=== PATIENT | female | born 1995 | race Hispanic/Latino ===

== ENCOUNTER 2018-04-13 19:46 | Emergency (ER) | payer SELFPAY ==
[2018-04-13 19:47] VITALS: BP 146/84; PULSE 97; RESP 18; TEMP 36.4; O2SAT 100; BMI 39.7
[2018-04-13 20:06] VITALS: PULSE 97; RESP 18; TEMP 36.4; O2SAT 100
--- NOTE | 2018-04-13 20:11 | CT_ITS ---
STUDY: CT SOFT TISSUE NECK WITH CONTRAST REASON FOR EXAM: Female, 22 years old. Sore throat. Lump anteriorly in the mid neck. Elevated hypertension. RADIATION DOSAGE (If Supplied By Facility): CTDIvol = ( 22.69 ) mGy, DLP = ( 662.80 ) mGycm TECHNIQUE: The patient was scanned in a multi-detector CT scanner. High resolution transaxial imaging was performed following intravenous administration of 75ML ml of Isovue 300 contrast material. Sagittal and coronal images were reconstructed. Individualized dose optimization techniques were used for this CT. COMPARISON: None. FINDINGS: Normal bilateral parotid glands. Normal bilateral relations mgr spaces. Normal bilateral parapharyngeal spaces. Normal bilateral carotid spaces. Normal bilateral sublingual and submandibular glands. There is a 1.1 x 0.6 x 0.4 cm left submandibular lymph node. There is mild adenoidal hyperplasia. Normal retropharyngeal space. Normal perivertebral space. Normal visualized bilateral faucial tonsils. The visualized tongue, tongue base and oropharynx are normal. The visualized cervical lymph nodes (levels I-) are within normal size limits, and maintain normal morphology. There is no demonstrated solid or cystic mass lesion. There is no abnormal contrast enhancement. Normal epiglottis, bilateral vallecula and hypopharynx. The pre-epiglottic and paraglottic adipose spaces are normal. Normal visualized bilateral piriform sinuses, aryepiglottic folds, vocal cords, and arytenoid-cricoid articulations. Normal subglottic trachea. Normal bilateral lobes of the thyroid gland. Normal visualized pulmonary apices. Normal visualized paranasal sinuses. Normal visualized cervical spine. CT/Soft Tissue Neck WITH Contrast IMPRESSION: Essentially normal enhanced CT examination of the soft tissues of the neck. Electronically Signed: Bhavesh Pitts DO at 22:21 EST Tel [phone], Service support ,
[2018-04-13] MEDS: 0.9% Normal Saline 1,000 ML 150 ML IV (20:34)
[2018-04-13 20:57] LABS: Absolute Lymphocyte Count 4.91 X10^3/ul (0.83-4.51); Absolute Neutrophil Count 8.1 X10^3/uL (2.0-7.7); Basophil# 0.04 X10^3/uL; Basophil% 0.3 % (0-1); Eosinophil# 0.16 X10^3/uL; Eosinophils% 1.1 % (0-5); Hematocrit 42.9 % (37-47); Hemoglobin 14.2 g/dl (12.0-15.0); Lymphocyte # 4.91 X10^3/ul (4.0); Mean Corp Hgb Conc 33.1 g/gl (32-36); Mean Corpuscular Hgb 27.6 pg (27.0-32.0); Mean Corpuscular Volume 83.3 fL (81-99); Monocyte# 0.79 X10^3/uL; Monocyte% 5.6 % (0-10); Neutrophil # 8.11 X10^3/uL (2.7-7.7); Neutrophil % 57.8 % (47-70); Platelet Count 372 K/mm3 (150-450); RBC Distribution Width CV 14.8 % (11.6-14.6); RBC Distribution Width SD 44.3 fl (35.1-43.9); Red Blood Count 5.15 M/mm3 (4.2-5.4)
[2018-04-13 21:00] LABS: Anion Gap 9 (5-15); BUN 10 mg/dL (7-18); BUN/Creat Ratio 12.6 RATIO (10-20); Calcium,Total 8.8 mg/dL (8.5-10.1); Chloride 104 mmol/L (98-107); EST Glomerular Filtration Rate 97 mL/min (>60); Est Glom Filt Rate - Afr Amer 117 mL/min (>60); Glucose 103 mg/dL (74-106); Potassium 3.6 mmol/L (3.5-5.1); Sodium Level 138 mmol/L (136-145)
[2018-04-13 21:02] LABS: POSITIVE COUNT NO; POSITIVE DIFFERENTIAL NO; POSITIVE MORPHOLOGY NO
[2018-04-13 21:06] LABS: Internal QC Validated? YES +Cl - CLEAR BKGD; Pregnancy, Urine Negative Negative
--- NOTE | 2018-04-13 22:25 | ED.VISSUMM ---
- ER Visit Summary Date of Service: 04/13/18 Chief Complaint: Sore throat, jaw swelling History of Present Illness: The patient is a 22 F woke yesterday morning with some jaw pain. She states the muscles hurt to open her mouth. This morning she woke up with swollen area under her chin and a palpable mass. She feels that the area of under her tongue was swollen this morning but that is now improved. She denies any dental pain. Physical Examination: Vital signs are unremarkable. Patient sitting upright in bed no acute distress. Head neck examination reveals TMs to be clear bilaterally. Intraoral examination reveals no focal dental tenderness. There is no gum edema. There is no fullness under the tongue at this time. She does have a palpable nodule noted just on the undersurface of her chin. There is no overlying skin changes. Heart is regular rate and rhythm. Lung sounds clear. Abdomen is soft nontender. Test Results: CBC was a white count of 14.0 but normal differential noted. Chemistry studies normal. test negative. CT neck with IV contrast is essentially unremarkable. There is a left submandibular lymph node noted in the area of interest. Emergency Department Course and Treatment: Test results were discussed with the patient. Because of the location of this lymph node and the fact that it was larger earlier pressing on the undersurface of her tongue, I will cover her with antibiotics. She will be given initial dose of Augmentin here and a prescription. Treatment Plan: [] Disposition: Discharge Impression: Lymphadenitis This note was generated with [employer] dictation software. It may contain incorrect words, spelling, and punctuation that were not noted in review of the chart prior to signing ED Disposition - Plan for ED Patient: Disposition: Home or Assisted Living Chief Complaint: Sore Throat Instructions: ED Cervical Adenitis Abx Tx Prescriptions: Amox/Clavulanate Tablet [Augmentin Tablet] 875 mg PO Q12H #20 tablet Referrals: Krystle Caraballo MD [STAFF PHYSICIAN] - As Needed
[2018-04-13 22:35] VITALS: BP 127/79; PULSE 83; RESP 14; O2SAT 99
[2018-04-13] MEDS: Amox/Clavulanate 875 MG Tablet PO (22:35)
== END 2018-04-13 22:36 | disposition home or self-care (01) ==
PROVIDERS: Emergency Provider Emergency Medicine
DX: I88.9 Nonspecific lymphadenitis, unspecified (principal); Z87.442 Personal history of urinary calculi; Z72.0 Tobacco use
CPT/HCPCS: 70491; 80048; 81025; 85025; 96360; 96361; 99285; J7030; Q9967; A4216

== ENCOUNTER 2018-08-12 11:17 | Emergency (ER) | payer BC, SELFPAY ==
[2018-08-12 11:18] VITALS: BP 144/66; PULSE 92; RESP 18; TEMP 36.8; O2SAT 100; BMI 34.8
--- NOTE | 2018-08-12 11:32 | ED.DCSUM_ITS ---
History of Present Illness Chief Complaint: Back Informant: Patient Onset: Days - Onset of waxing waning central low back pain 2 days ago that is not positional and unable to find position of comfort Context: Sudden Onset Timing: Continuous, Waxes and wanes Quality: Pain Location: central low back Current Severity: Severe Maximum Severity: Severe Worsened by: Nothing Relieved by: Nothing Associated Symptoms: Nausea Narrative: Who presents with sudden onset of central low back pain that is waxing and waning in intensity for the past 2 days. She completed a course of antibiotics 3 days ago for UTI. She has history of ureteral/renal lithiasis. She denies fever, chills night sweats. She does report intermittent nausea without vomiting or diarrhea. She denies dysuria, frequency or hematuria. She denies history of endometriosis, ovarian cysts or ectopic . She denies trauma and has not noted a rash. She has taken multiple [id number] medicines with no improvement. Prior similar symptoms: No Recent Illness/Hospitalization: Yes - UTI - Past Medical History (1) Renal and ureteric calculus Status: Chronic Past Medical History - Allergies and Home Meds Allergies/Adverse Reactions: Allergies latex Allergy (Verified 04/13/18 19:47) Itching Primary Care Physician: Care Physician,No Primary [Primary Care Provider] - Prior records reviewed: Yes Surgical History: no surgical history Lives: Alone Smoking Status: Current every day smoker Alcohol: Rare Drugs: None Review of Systems General: Denies: Chills, Fever, Malaise, Subjective, Sweats ENT: Reports: Bilateral ear pain, Rhinorrhea, Sore throat Cardiovascular: Denies: Chest pain, Palpitations Respiratory: Denies: Dyspnea, Cough, Dyspnea on exertion Gastrointestinal: Reports: Nausea. Denies: Abdominal pain, Vomiting, Diarrhea, Constipation, Melena, Hematochezia, -, - Genitourinary: Denies: Dysuria, Hematuria, Frequency Musculoskeletal: Reports: Back pain. Denies: Myalgias, Arthralgias, Neck pain, Swelling, Extremity Pain, -, - Skin: Denies: Rash, Wounds Neurological: Denies: Headache, Weakness Allergy: Denies: Uticaria, Swelling of the mouth Physical Exam Vital Signs/Narrative: Vital Signs Temp Pulse Resp BP Pulse Ox 08/12/18 11:18 98.3 F 92 18 144/66 H 100 Inital Vital Signs reviewed: Yes General: Well nourished, Well developed, No Acute Distress Head: Normocephalic, Atraumatic Eyes: Perrl, EOMI ENT: Moist mucous membranes, No rhinorrhea Neck: Supple, Nontender Cardiovascular: Regular rate, Regular rhythm, No murmurs Respiratory: No distress, CTA bilaterally, Chest nontender Abdomen: Soft, Nontender, Nondistended, Normal bowel sounds, No masses. Negative for: Hepatomegaly, Splenomegaly, Mass, Pulsatile mass Back: Nontender, Normal Inspection. Negative for: CVA tenderness, Spinal tenderness Extremities: Nontender, No edema Skin: Normal color, No rash. Negative for: Cyanosis, Jaundice Neurological: Alert, Oriented x3, Cranial nerves II-XII grossly intact, Normal Strength, Normal Sensation, Normal Gait Psychological: Normal affect, Normal Mood Diagnostic/Tx/Re-eval Impressions Abdomen/Pelvis CT 08/12/18 12:09 IMPRESSION: No evidence of hydronephrosis. No evidence of renal ureteral bladder calculi. Two Benign-appearing right renal cysts. Consider follow-up ultrasound for further clarification. Electronically Signed: Leticia Ugalde MD at 12:59 EDT Tel , Service support , 08/12/18 12:09 Abdomen/Pelvis WITH Contrast [CT] Stat Laboratory Results 08/12/18 08/12/18 08/12/18 11:34 11:34 11:45 WBC 11.5 H RBC 5.05 Hgb 14.2 Hct 43.0 MCV 85.1 MCH 28.1 MCHC 33.0 RDW 13.5 RDW Differential 41.9 Plt Count 346 MPV 9.5 Immature Gran % (Auto) 0.200 Neut % (Auto) 67.3 Lymph % (Auto) 26.4 [place] % (Auto) 4.5 Eos % (Auto) 1.4 Baso % (Auto) 0.2 Absolute Neuts (auto) 7.7 Absolute Lymphs (auto) 3.02 Total Counted Not Reportable Serum , Qual NEGATIVE Urine Color Yellow Urine Clarity Clear Urine pH 7.0 Ur Specific [place] 1.010 Urine Protein Negative Urine Glucose (UA) Normal Urine Ketones Negative Urine Occult Blood Negative Urine Nitrite Negative Urine Bilirubin Negative Urine Urobilinogen Normal Ur Leukocyte Esterase 100 H Urine RBC 0 SEEN Urine WBC 5-10 SEEN Ur Squamous Epith Cells 0-5 SEEN Urine Bacteria 0 SEEN Urine Mucus 0 SEEN - Medical Decision Making With abrupt onset of waxing waning continuous pain need to evaluate for ureterolithiasis, ovarian cyst, ectopic . Patient was medicated with Zofran and IV Toradol. CBC and UA were obtained as well as serum test. CT flank was ordered. CT held until results of test are known. If test positive ultrasound may be a better study to evaluate her discomfort and will require pelvic exam. Patient was reassessed at 1 2: 05. She is smiling. Pain is essentially resolved. He was informed that a CT of the abdomen pelvis was ordered to evaluate for ureterolithiasis. Even though CT is negative for obstructing stone or ureterolithiasis history is suspicious. Will treat with anti-inflammatory and have patient follow-up with primary care physician. ED Disposition - Plan for ED Patient: Disposition: Home or Assisted Living Diagnosis: Acute midline back pain Instructions: ED Neck Back Pain General Prescriptions: Naproxen [Naprosyn] 500 mg PO BID #14 tab Referrals: Care Physician,No Primary [Primary Care Provider] - Edwige Keane MD [STAFF PHYSICIAN] - As Needed
[2018-08-12 11:42] LABS: Absolute Lymphocyte Count 3.02 X10^3/ul (0.83-4.51); Absolute Neutrophil Count 7.7 X10^3/uL (2.0-7.7); Basophil# 0.02 X10^3/uL; Basophil% 0.2 % (0-1); Eosinophil# 0.16 X10^3/uL; Eosinophils% 1.4 % (0-5); Hemoglobin 14.2 g/dl (12.0-15.0); Lymphocyte # 3.02 X10^3/ul (4.0); Lymphocyte % 26.4 % (19-41); Mean Corpuscular Hgb 28.1 pg (27.0-32.0); Mean Corpuscular Volume 85.1 fL (81-99); Mean Platelet Vol. 9.5 fl (6.2-12.0); Monocyte# 0.51 X10^3/uL; Monocyte% 4.5 % (0-10); Neutrophil # 7.73 X10^3/uL (2.7-7.7); Neutrophil % 67.3 % (47-70); Platelet Count 346 K/mm3 (150-450); RBC Distribution Width CV 13.5 % (11.6-14.6); RBC Distribution Width SD 41.9 fl (35.1-43.9); Red Blood Count 5.05 M/mm3 (4.2-5.4); White Blood Count 11.5 K/mm3 (4.4-11.0)
[2018-08-12 11:43] VITALS: TEMP 36.8
[2018-08-12 11:44] LABS: POSITIVE COUNT NO; POSITIVE DIFFERENTIAL NO; POSITIVE MORPHOLOGY NO
[2018-08-12] MEDS: Ondansetron 4 MG/2 ML Vial IV (11:46)
[2018-08-12] MEDS: 0.9% Normal Saline 1,000 ML 250 ML IV (11:46)
[2018-08-12] MEDS: Ketorolac 30 MG/ML Syringe 15 MG IV (11:46)
[2018-08-12 11:53] LABS: Bacteria 0 SEEN /hpf (None Seen); Mucous, Urine 0 SEEN /hpf (<or=2+); Red Blood Cells-Urine 0 SEEN /hpf (0-5)
[2018-08-12 11:55] LABS: Internal QC Validated? YES +Cl - CLEAR BKGD; Pregnancy, Serum, hCG Quali. NEGATIVE Negative
[2018-08-12 12:03] LABS: Color, Urine Yellow (Yellow); Glucose, Dipstick Normal (Normal); Ketone-Dipstick Negative (Negative); Leukocyte Esterase-Dipstick 100 /ul (Negative); Nitrite-Dipstick Negative (Negative); Occult Blood-Urine Negative /ul (Negative); Protein-Dipstick Negative (Negative); Urine Bilirubin Dipstick Negative (Negative); Urine Clarity Clear (Clear); Urine Urobilinogen Normal (Normal)
--- NOTE | 2018-08-12 12:09 | CT_ITS ---
STUDY: CT ABDOMEN AND PELVIS WITH CONTRAST REASON FOR EXAM: Female, 23 years old. Recent UTI flank pain RADIATION DOSAGE (If Supplied By Facility): CTDIvol = ( 19.31 ) mGy, DLP = ( 2407.44 ) mGycm TECHNIQUE: Transaxial images were obtained from the dome of the diaphragm to the symphysis pubis without oral contrast. 100 IV Isovue 300 was administered. Sagittal and coronal images were reconstructed. Individualized dose optimization techniques were used for this CT. COMPARISON: None. FINDINGS: The visualized lung bases are unremarkable. The visualized portions of the heart are within normal limits. Normal liver. The gallbladder is contracted. Normal spleen. Normal pancreas. Normal bilateral adrenal glands. There is a 1 cm posterior right right renal cyst. There is a 7 mm right renal cyst. There is no evidence of striations in the kidneys. Normal left kidney. Normal visualized stomach. Normal small intestine. There is moderate stool in the colon. The appendix is visualized and appears normal. Normal abdominal aorta. Normal inferior vena cava. Normal retroperitoneum. Normal urinary bladder. Normal visualized uterus. Normal abdominal wall. Normal osseous structures. CT/Abdomen/Pelvis WITH Contrast IMPRESSION: No evidence of hydronephrosis. No evidence of renal ureteral bladder calculi. Two Benign-appearing right renal cysts. Consider follow-up ultrasound for further clarification. Electronically Signed: Leticia Ugalde MD at 12:59 EDT Tel , Service support ,
[2018-08-12 12:15] LABS: Squamous Epithelial Cells - UA 0-5 SEEN /hpf (5-10); White Blood Cells 5-10 SEEN /hpf (0-5)
[2018-08-12 12:44] VITALS: BP 138/61; PULSE 76; RESP 18; TEMP 36.7; O2SAT 99
[2018-08-12 13:25] VITALS: TEMP 37.1
[2018-08-12 13:34] VITALS: BP 139/79; PULSE 83; RESP 16; O2SAT 100
--- NOTE | 2018-08-12 13:34 | ED.RN ---
THIS NURSE REVIEWED D/C INSTRUCTIONS WITH PT. PT VERBALIZED UNDERSTANDING OF INSTRUCTIONS. IV D/C. IV CATHETER INTACT. PT TOLERATED WELL. PT DENIES FURTHER NEEDS OR QUESTIONS AT THIS TIME
== END 2018-08-12 13:35 | disposition home or self-care (01) ==
PROVIDERS: Emergency Provider Emergency Medicine
DX: M54.5 Low back pain (principal); Z87.442 Personal history of urinary calculi; Z87.440 Personal history of urinary (tract) infections; F17.200 Nicotine dependence, unspecified, uncomplicated
CPT/HCPCS: 74177; 81001; 84703; 85025; 96361; 96374; 96375; 99283; J7030; Q9967; A4216; J2405

== ENCOUNTER 2021-07-17 21:20 | Outpatient (CLI) | payer MEDICAID, SELFPAY ==
[2021-07-17 21:38] VITALS: BMI 39.8
[2021-07-17 21:53] VITALS: BP 126/71; PULSE 98; PULSE 99; TEMP 36.6; O2SAT 98
[2021-07-17 22:17] LABS: Color, Urine Yellow (Yellow); Glucose, Dipstick Normal (Normal); Ketone-Dipstick 15 mg/dl (Negative); Leukocyte Esterase-Dipstick 500 /ul (Negative); Nitrite-Dipstick Negative (Negative); Occult Blood-Urine 10 /ul (Negative); Protein-Dipstick Negative (Negative); Specific Gravity, Urine 1.025 (1.002-1.030); Urine Bilirubin Dipstick Negative (Negative); Urine Clarity Clear (Clear); Urine Urobilinogen Normal (Normal)
--- NOTE | 2021-11-11 15:46 | OB.TRI.NOTE ---
HPI - General General Date of Service: 07/17/21 Chief Complaint: Cramping HPI Narrative CHARLINE MCCLENDON, is a 26 F who presents with lower abdominal cramping like period cramps. Maternal Data Information Gestational age: 28.5 wks [facility] Medical History (Updated 11/11/21 @ 16:[address] Edwige Keane MD) History of recurrent , antepartum Home Medications aspirin 81 mg chewable tablet 81 mg PO DAILY BLOOD CLOTTING DISORDER 07/17/21 [History Last Taken 07/17/21 08:00] aogzncaw-eqz-Wz-FA 1 mg tablet 1 tab PO DAILY 07/17/21 [History Last Taken 07/17/21 08:00] nitrofurantoin monohydrate/macrocrystals 100 mg capsule (Macrobid) 100 mg PO Q12H 7 days #14 caps 07/18/21 [Rx Last Taken Unknown] Allergy/AdvReac Type Severity Reaction Status Date / Time latex Allergy Itching Verified 07/17/21 21:43 Family History no significant family his no significant family history Social History Smoking Status: Current every day smoker History 9 Elective abortions 0 Hx Para 0 Spontaneous abortions 8 Hx # Term Pregnancies 0 Ectopic pregnancies 0 Hx # Pregnancies 0 Multiple births 0 # of living children 0 OB Visit Details Medical History Medical History: Negative: Diabetes, Hypertension, Heart disease, Thyroid dysfunction and Other Comments: suspicion for thrombophilia, managed with daily aspirin ROS ROS Narrative Cramping. No bleeding, no LOF and FM persist. No vaginal discharge or recent coitus. Constitutional Constitutional: Reports systems reviewed and no addt'l complaints, except as documented Respiratory/Chest Respiratory/Chest: Reports systems reviewed and no addt'l complaints, except as documented Gastrointestinal Gastrointestinal: Reports none Genitourinary Genitourinary: Reports low back pain and urinary frequency Physical Exam Narrative Patient was not assessed by me personally. RN exam - secure cervix. NST FHR Rate Baby A Baseline: appropriate for gestational age. Assessment Assessment Detail: age appropriate Assessment & Plan (1) 28 weeks gestation of : (2) Pelvic pain affecting : (3) Renal and ureteric calculus: PLAN: Plan Urinalysis borderline, ctxs improved. Patient discharged to FU in office in 48hr. Will start Macrodantin while awaiting CS results.
== END 2021-07-17 22:50 | disposition home or self-care (01) ==
LOC: WPOUT 21:36 → WP 21:36
PROVIDERS: Visit Provider Obstetrics & Gynecology Gynecology
DX: O99.891 Other specified diseases and conditions complicating pregnancy (principal); O99.333 Smoking (tobacco) complicating pregnancy, third trimester; R10.2 Pelvic and perineal pain; N20.2 Calculus of kidney with calculus of ureter; F17.200 Nicotine dependence, unspecified, uncomplicated; Z3A.28 28 weeks gestation of pregnancy; Z79.82 Long term (current) use of aspirin
CPT/HCPCS: 59025; 59050; 81002; 87086; 87088; 99218; G0378